=== PATIENT | female | born 1985 | race Two or more races ===

== ENCOUNTER 2020-05-01 11:50 | Inpatient (IN) | payer OTHER ==
[2020-05-01] MEDS ORDERED: guaiFENesin 200 MG/10 ML 10 ML UNIT-DOSE CUPS PO PRN (18:13)
[2020-05-01] MEDS ORDERED: LOPERAMIDE HCL 2 MG CAPSULE PO PRN (18:13)
[2020-05-01] MEDS ORDERED: MAG HYDROX/AL HYDROX/SIMETH 30 ML UNIT-DOSE CUP PO PRN (18:13)
[2020-05-01] MEDS ORDERED: IBUPROFEN 400 MG TABLET (FP) PO PRN (18:13)
[2020-05-01] MEDS ORDERED: MAGNESIUM CITRATE 300 ML BOTTLE PO PRN (18:13)
[2020-05-01] MEDS ORDERED: NICOTINE POLACRILEX 2 MG GUM BC PRN (18:13)
[2020-05-01] MEDS ORDERED: ACETAMINOPHEN 325 MG TABLET (FP) PO PRN (18:13)
[2020-05-01] MEDS ORDERED: P-EPHED 60MG/TRIPROLIDI 2.5MG TABLET PO PRN (18:13)
[2020-05-01] MEDS ORDERED: MAGNESIUM HYDROX 2400MG/30ML ORAL SUSPENSION 30 ML CUP PO PRN (18:13)
[2020-05-01 18:36] VITALS: BMI 32.8
[2020-05-01] MEDS ORDERED: TUBERCULIN PPD 5 TU/0.1ML VIAL ID ONE ×2 (19:08→19:10)
[2020-05-01] MEDS: MELATONIN 5 MG TABLETS PO SCH (21:06)
[2020-05-01] MEDS: THIAMINE HCL 100 MG TABLET (FP) PO SCH (21:06)
[2020-05-01] MEDS: hydrOXYzine PAMOATE 50 MG CAPSULE (FP) PO SCH (21:09)
[2020-05-02] MEDS ORDERED: hydrOXYzine PAMOATE 25 MG CAPSULE (FP) PO PRN (06:00)
[2020-05-02] MEDS: NICOTINE 14 MG/24 HOURS TOPICAL PATCH TD SCH (09:59)
[2020-05-02] MEDS: PRENATAL VITAMINS W/ FOLIC ACID TABLET (FP) PO SCH (09:59)
[2020-05-02] MEDS ORDERED: COLLOIDAL OATMEAL 1 BAR EACH TP PRN (10:20)
[2020-05-02 10:59] LABS: HEMATOCRIT 39.3 % (32.4-45.2); MCH 29.5 pg (25.7-33.7); MCHC 33.1 g/dl (32.0-36.0); MEAN CELL VOLUME 89.1 fl (80-96); MEAN PLT VOLUME 9.9 fl (7.5-11.1); PLATELET COUNT 305 K/MM3 (134-434); RBC 4.41 M/mm3 (3.60-5.2); RDW 13.7 % (11.6-15.6); WHITE BLOOD COUNT 9.7 K/mm3 (4.0-10.0)
[2020-05-02 11:07] LABS: POTASSIUM 4.2 mmol/L (3.5-5.1)
[2020-05-02 11:33] LABS: CALCIUM 9.3 mg/dL (8.5-10.1)
[2020-05-02 11:37] LABS: CREATININE 1.1 mg/dL (0.55-1.3)
[2020-05-02 11:38] LABS: TOT PROT 7.8 g/dl (6.4-8.2)
[2020-05-02 11:39] LABS: BILIRUBIN,TOTAL 1.4 mg/dL (0.2-1)
[2020-05-02] MEDS: hydrOXYzine PAMOATE 50 MG CAPSULE (FP) PO SCH (21:21)
[2020-05-02] MEDS: THIAMINE HCL 100 MG TABLET (FP) PO SCH (21:21)
[2020-05-02] MEDS: MELATONIN 5 MG TABLETS PO SCH (21:21)
[2020-05-02] MEDS: SULFAMETHOXAZOLE/TRIMETHOPRIM 800MG/160MG D.S. TABLET PO SCH (21:22)
[2020-05-02] MEDS ORDERED: CEPHALEXIN MONOHYDRATE 500 MG CAPSULE (UD) PO SCH (22:00)
[2020-05-03] MEDS ORDERED: ARIPiprazole 5 MG TABLET ONE (09:33)
[2020-05-03] MEDS ORDERED: PT OWN MED DRAWER 7, Y5N ONE (09:34)
[2020-05-03] MEDS: SULFAMETHOXAZOLE/TRIMETHOPRIM 800MG/160MG D.S. TABLET PO SCH ×2 (10:17→21:17)
[2020-05-03] MEDS: ARIPiprazole 10 MG TABLET PO SCH (10:18)
[2020-05-03] MEDS: NICOTINE 14 MG/24 HOURS TOPICAL PATCH TD SCH (10:19)
[2020-05-03] MEDS: GABAPENTIN 400 MG CAPSULE PO SCH (10:19)
[2020-05-03] MEDS: PRENATAL VITAMINS W/ FOLIC ACID TABLET (FP) PO SCH (10:21)
[2020-05-03] MEDS: PARoxetine HCL 10 MG TABLET PO SCH (11:23)
[2020-05-03] MEDS ORDERED: NICOTINE POLACRILEX 4 MG GUM BUC PRN (13:30)
[2020-05-03] MEDS ORDERED: NICOTINE 14 MG/24 HOURS TOPICAL PATCH TD SCH (13:45)
[2020-05-03 14:13] LABS: EPI CELLS 32 /uL (0-25.1); HYALINE CASTS 2 /uL (0-3.1); PH,URINE 5.5 (5.0-8.0); URINE APPEARANCE CLEAR; URINE BACTERIA 5990 /uL (0-1359); URINE BILIRUBIN NEGATIVE (NEGATIVE); URINE COLOR YELLOW; URINE GLUCOSE (UA) NEGATIVE (NEGATIVE); URINE KETONE NEGATIVE (NEGATIVE); URINE LEUK ESTERASE TRACE (NEGATIVE); URINE NITRITE NEGATIVE (NEGATIVE); URINE PROTEIN NEGATIVE (NEGATIVE); URINE RBC 12 /uL (0-23.9); URINE UROBILINOGEN 0.2 mg/dL (0.2-1.0); URINE WBC 74 /uL (0-25.8)
[2020-05-03] MEDS: THIAMINE HCL 100 MG TABLET (FP) PO SCH (21:17)
[2020-05-03] MEDS: hydrOXYzine PAMOATE 50 MG CAPSULE (FP) PO SCH (21:17)
[2020-05-03] MEDS: MELATONIN 5 MG TABLETS PO SCH (21:17)
[2020-05-04] MEDS ORDERED: ARIPiprazole 5 MG TABLET ONE (08:31)
[2020-05-04] MEDS: SULFAMETHOXAZOLE/TRIMETHOPRIM 800MG/160MG D.S. TABLET PO SCH ×2 (09:56→21:18)
[2020-05-04] MEDS: GABAPENTIN 400 MG CAPSULE PO SCH (09:56)
[2020-05-04] MEDS: ARIPiprazole 10 MG TABLET PO SCH (09:56)
[2020-05-04] MEDS: PARoxetine HCL 10 MG TABLET PO SCH (09:57)
[2020-05-04] MEDS: NICOTINE 21 MG/24 HOURS TOPICAL PATCH TD SCH (09:57)
[2020-05-04] MEDS: PRENATAL VITAMINS W/ FOLIC ACID TABLET (FP) PO SCH (09:57)
[2020-05-04] MEDS ORDERED: MENTHOL/PHENOL 1 EACH UD MM PRN (13:28)
[2020-05-04] MEDS: hydrOXYzine PAMOATE 50 MG CAPSULE (FP) PO SCH (21:17)
[2020-05-04] MEDS: THIAMINE HCL 100 MG TABLET (FP) PO SCH (21:18)
[2020-05-04] MEDS: MELATONIN 5 MG TABLETS PO SCH (21:19)
[2020-05-05] MEDS ORDERED: PT OWN MED DRAWER 7, Y5N ONE (08:17)
[2020-05-05] MEDS: ARIPiprazole 10 MG TABLET PO SCH (09:46)
[2020-05-05] MEDS: SULFAMETHOXAZOLE/TRIMETHOPRIM 800MG/160MG D.S. TABLET PO SCH ×2 (09:46→21:16)
[2020-05-05] MEDS: PRENATAL VITAMINS W/ FOLIC ACID TABLET (FP) PO SCH (09:47)
[2020-05-05] MEDS: NICOTINE 21 MG/24 HOURS TOPICAL PATCH TD SCH (09:47)
[2020-05-05] MEDS: GABAPENTIN 400 MG CAPSULE PO SCH (09:47)
[2020-05-05] MEDS: PARoxetine HCL 10 MG TABLET PO SCH (09:47)
[2020-05-05] MEDS: MELATONIN 5 MG TABLETS PO SCH (21:16)
[2020-05-05] MEDS: THIAMINE HCL 100 MG TABLET (FP) PO SCH (21:16)
[2020-05-05] MEDS: hydrOXYzine PAMOATE 50 MG CAPSULE (FP) PO SCH (21:16)
[2020-05-06] MEDS: SULFAMETHOXAZOLE/TRIMETHOPRIM 800MG/160MG D.S. TABLET PO SCH ×2 (09:46→21:20)
[2020-05-06] MEDS: GABAPENTIN 400 MG CAPSULE PO SCH (09:46)
[2020-05-06] MEDS: NICOTINE 21 MG/24 HOURS TOPICAL PATCH TD SCH (09:47)
[2020-05-06] MEDS: ARIPiprazole 10 MG TABLET PO SCH (09:47)
[2020-05-06] MEDS: PARoxetine HCL 10 MG TABLET PO SCH (09:47)
[2020-05-06] MEDS: PRENATAL VITAMINS W/ FOLIC ACID TABLET (FP) PO SCH (09:47)
[2020-05-06] MEDS: MELATONIN 5 MG TABLETS PO SCH (21:20)
[2020-05-06] MEDS: THIAMINE HCL 100 MG TABLET (FP) PO SCH (21:21)
[2020-05-06] MEDS: hydrOXYzine PAMOATE 50 MG CAPSULE (FP) PO SCH (21:21)
[2020-05-07] MEDS: PRENATAL VITAMINS W/ FOLIC ACID TABLET (FP) PO SCH (09:58)
[2020-05-07] MEDS: SULFAMETHOXAZOLE/TRIMETHOPRIM 800MG/160MG D.S. TABLET PO SCH ×2 (09:58→21:14)
[2020-05-07] MEDS: GABAPENTIN 400 MG CAPSULE PO SCH (09:58)
[2020-05-07] MEDS: ARIPiprazole 10 MG TABLET PO SCH (09:59)
[2020-05-07] MEDS: PARoxetine HCL 10 MG TABLET PO SCH (09:59)
[2020-05-07] MEDS: NICOTINE 21 MG/24 HOURS TOPICAL PATCH TD SCH (09:59)
[2020-05-07] MEDS: THIAMINE HCL 100 MG TABLET (FP) PO SCH (21:14)
[2020-05-07] MEDS: MELATONIN 5 MG TABLETS PO SCH (21:14)
[2020-05-07] MEDS: hydrOXYzine PAMOATE 50 MG CAPSULE (FP) PO SCH (21:15)
[2020-05-08] MEDS ORDERED: ARIPiprazole 5 MG TABLET ONE (08:25)
[2020-05-08] MEDS: SULFAMETHOXAZOLE/TRIMETHOPRIM 800MG/160MG D.S. TABLET PO SCH ×2 (10:03→21:18)
[2020-05-08] MEDS: ARIPiprazole 10 MG TABLET PO SCH (10:03)
[2020-05-08] MEDS: PARoxetine HCL 10 MG TABLET PO SCH (10:04)
[2020-05-08] MEDS: NICOTINE 21 MG/24 HOURS TOPICAL PATCH TD SCH (10:04)
[2020-05-08] MEDS: PRENATAL VITAMINS W/ FOLIC ACID TABLET (FP) PO SCH (10:04)
[2020-05-08] MEDS: GABAPENTIN 400 MG CAPSULE PO SCH ×2 (10:04→21:18)
[2020-05-08] MEDS ORDERED: COLLOIDAL OATMEAL 1 BAR EACH TP PRN (19:31)
[2020-05-08] MEDS: MELATONIN 5 MG TABLETS PO SCH (21:16)
[2020-05-08] MEDS: THIAMINE HCL 100 MG TABLET (FP) PO SCH (21:18)
[2020-05-08] MEDS: ARIPiprazole 5 MG TABLET PO SCH (21:18)
[2020-05-08] MEDS: hydrOXYzine PAMOATE 50 MG CAPSULE (FP) PO SCH (21:19)
[2020-05-09 07:10] VITALS: TEMP 97.1
[2020-05-09] MEDS ORDERED: PT OWN MED DRAWER 7, Y5N ONE (09:02)
[2020-05-09] MEDS: SULFAMETHOXAZOLE/TRIMETHOPRIM 800MG/160MG D.S. TABLET PO SCH ×2 (10:00→21:09)
[2020-05-09] MEDS: PARoxetine HCL 10 MG TABLET PO SCH (10:00)
[2020-05-09] MEDS: PRENATAL VITAMINS W/ FOLIC ACID TABLET (FP) PO SCH (10:00)
[2020-05-09] MEDS: NICOTINE 21 MG/24 HOURS TOPICAL PATCH TD SCH (10:00)
[2020-05-09] MEDS: MELATONIN 5 MG TABLETS PO SCH (21:09)
[2020-05-09] MEDS: hydrOXYzine PAMOATE 50 MG CAPSULE (FP) PO SCH (21:34)
[2020-05-09] MEDS: ARIPiprazole 5 MG TABLET PO SCH (21:34)
[2020-05-09] MEDS: GABAPENTIN 400 MG CAPSULE PO SCH (21:34)
[2020-05-09] MEDS: THIAMINE HCL 100 MG TABLET (FP) PO SCH (21:34)
[2020-05-09 21:45] VITALS: BP 122/83; PULSE 99
== END 2020-05-09 21:47 | disposition left against medical advice (07) | DRG 894 ==
LOC: YASAS 11:50 → Y3E 18:28
PROVIDERS: ADMIT Allergy & Immunology; ATTEND Allergy & Immunology
PROC: HZ42ZZZ Group Counseling for Substance Abuse Treatment, Cognitive-Behavioral (ICD-10-PCS; principal; 2020-05-01)
DX: F14.20 Cocaine dependence, uncomplicated (principal); F10.10 Alcohol abuse, uncomplicated; F17.210 Nicotine dependence, cigarettes, uncomplicated; F41.1 Generalized anxiety disorder; F33.41 Major depressive disorder, recurrent, in partial remission; Z88.0 Allergy status to penicillin
CPT/HCPCS: 36415; 80053; 81003; 85027; 86780; 93005; 93010; C9803; U0003